=== PATIENT | male | born 1985 | race American Indian/Alaskan Native ===

== ENCOUNTER 2017-06-07 21:46 | Emergency (ER) | payer OTHER ==
--- NOTE | 2017-06-08 03:45 | Emergency Department Report ---
ED Asthma HPI - General Chief Complaint: Adult Asthma Stated Complaint: SOB/ ELLIOT Time Seen by Provider: 06/08/17 01:21 Source: patient Mode of arrival: Ambulatory Limitations: No Limitations - History of Present Illness Initial Comments: Patient reports that he has cough and, wheeze and shortness of breath since getting in and U guinea pig 2 weeks ago. He said he was cleaning up the area that the guinea pig stain and that triggered his asthma. He said that he ran out of his asthma and a little which is albuterol. He said he uses [facility] for his medication. Patient said he coughs and wheezes with his asthma attacks. No primary care visits. He does not have a doctor. Patient reports chest tightness and denies any heart disease. No medication taken for asthma since he does not have any inhaler. Asthma attack proceeded by nasal congestion and runny nose which patient said he has not been taking any medication for that. Denies any headache, drooling, sore throat. MD Complaint: "asthma attack", shortness of breath, wheezing Onset/Timin -: week(s) Asthma History: childhood onset, history of prior ED visit Severity: similar to prior Context: recent URI, ran out of meds, pet exposure Associated Symptoms: dry cough, chest pain (chest tightness). denies: productive cough, fever, hemoptysis, leg edema, syncope Treatments Prior to Arrival: inhaled bronchodilator - Related Data Current Asthma Therapy: none Previous Rx's Medication Instructions Recorded Last Taken Type Cetirizine HCl [ZyrTEC] 10 mg PO QAM 14 Days #14 capsule 06/08/17 Unknown Rx Fluticasone [Flonase] 1 spray NS QDAY 14 Days #1 bottle 06/08/17 Unknown Rx methylPREDNISolone [Medrol] 4 mg PO ONCE 6 Days #1 pack 06/08/17 Unknown Rx Allergies Allergy/AdvReac Type Severity Reaction Status Date / Time No Known Allergies Allergy Unverified 06/07/17 22:10 ED Review of Systems ROS: Stated complaint: SOB/ ELLIOT Other details as noted in HPI Comment: All other systems reviewed and negative Constitutional: no symptoms reported Eyes: denies: eye pain, eye discharge, vision change ENT: congestion. denies: ear pain, throat pain, dental pain, epistaxis Respiratory: cough, shortness of breath, SOB with exertion, SOB at rest, wheezing. denies: stridor Cardiovascular: chest pain (chest tightness). denies: palpitations, dyspnea on exertion, orthopnea, edema, syncope, paroxysmal nocturnal dyspnea Gastrointestinal: denies: abdominal pain, nausea, vomiting, diarrhea, constipation Skin: denies: rash Neurological: denies: headache, weakness, numbness, paresthesias, confusion, abnormal gait, vertigo ED Past Medical Hx - Past Medical History Previous Medical History?: Yes Hx Asthma: Yes - Surgical History Past Surgical History?: No - Family History Family history: no significant - Social History Smoking Status: Never Smoker Substance Use Type: Alcohol - Medications Home Medications: Home Medications Medication Instructions Recorded Confirmed Last Taken Type Cetirizine HCl [ZyrTEC] 10 mg PO QAM 14 Days #14 capsule 06/08/17 Unknown Rx Fluticasone [Flonase] 1 spray NS QDAY 14 Days #1 bottle 06/08/17 Unknown Rx methylPREDNISolone [Medrol] 4 mg PO ONCE 6 Days #1 pack 06/08/17 Unknown Rx ED Physical Exam - General Limitations: No Limitations General appearance: alert, in no apparent distress - Head Head exam: Present: atraumatic, normocephalic, normal inspection - Eye Eye exam: Present: normal appearance, PERRL, EOMI. Absent: periorbital swelling , periorbital tenderness Pupils: Present: normal accommodation - ENT ENT exam: Present: normal orophraynx, mucous membranes moist, normal external ear exam, other (no maxillary or frontal sinus tenderness.). Absent: normal exam, TM's normal bilaterally (bilateral TM congested without erythema.) - Neck Neck exam: Present: normal inspection, full ROM, other (no C-spine tenderness.) . Absent: tenderness, meningismus, lymphadenopathy, thyromegaly - Respiratory Respiratory exam: Present: wheezes, other (dry cough, continuous). Absent: normal lung sounds bilaterally, respiratory distress, rales, rhonchi, stridor, chest wall tenderness, accessory muscle use, decreased breath sounds, prolonged expiratory - Cardiovascular Cardiovascular Exam: Present: normal rhythm, tachycardia, normal heart sounds. Absent: systolic murmur, diastolic murmur - GI/Abdominal GI/Abdominal exam: Present: soft, normal bowel sounds. Absent: distended, tenderness, guarding, rebound, rigid - Extremities Exam Extremities exam: Present: normal inspection, full ROM, normal capillary refill , other (no clubbing, cyanosis or edema. +2 pulses in all extremities. No neurovascular compromise.). Absent: tenderness, pedal edema, joint swelling, calf tenderness - Back Exam Back exam: Present: normal inspection, full ROM. Absent: tenderness, CVA tenderness (R), CVA tenderness (L), muscle spasm, paraspinal tenderness, vertebral tenderness, rash noted - Neurological Exam Neurological exam: Present: alert, oriented X3, normal gait, reflexes normal. Absent: motor sensory deficit - Psychiatric Psychiatric exam: Present: normal affect, normal mood - Skin Skin exam: Present: warm, dry, intact, normal color. Absent: rash ED Course Vital Signs 06/07/17 06/08/17 22:10 07:00 Temperature 98.6 F Pulse Rate 101 H 85 Respiratory 18 17 Rate Blood Pressure 153/89 Blood Pressure 112/82 [Right] O2 Sat by Pulse 96 98 Oximetry EKG with sinus rhythm at 80 bpm. Per respiratory therapist, patient peak flow pretreatment 175 and post treatment 500. - Reevaluation(s) Reevaluation #1: 06/08/17 04:43 Patient started on albuterol 10 mg along with Atrovent 0.5 mg nebulizer, INT started and patient started on Solumedrol 125 mg IV and magnesium sulfate 2 g IV. Patient tolerated well and magnesium infused and at present. Patient currently getting nebulizer treatment per respiratory. Reevaluation #2: 06/08/17 05:14 She is stable. He still has nebulizer treatment going. He also told me that he just got a guinea pig for his 2 weeks ago and that is when his symptoms flare up. He reports that he is feeling a lot better. Denies use sulfate completed and patient tolerated without any adverse reaction Reevaluation #3: 06/08/17 06:39 She completed nebulizer treatment, magnesium sulfate and he feels much better. No problems with respiration and he said he did not have any chest pain or shortness of breath anymore. Patient says that he will need to get rid of the guinea pig because he thinks this was causing and triggering his asthma attack. Lung sounds clear after medication given. Peak flow pre treatment at 175 and post treatment at 500 per respiratory therapist. O2 sat is better and heart rate is stable. ED Medical Decision Making - EKG Data -: EKG Interpreted by Me (attending physician) EKG shows normal: sinus rhythm (80 bpm) Rate: normal - EKG Data Interpretation: no acute changes, normal EKG - Medical Decision Making D course: Here complaining of asthma attack preceded by upper respiratory tract infection after getting getting opaque and exposure to allergen from guinea pig. He said he has asthma and he has coughing and wheezing with his asthma attack and this is been ongoing and he run out of his inhaler. Physical findings for coughing and wheezing throughout lung cummins and pulse ox 96%. Patient was given albuterol 10 mg and Atrovent 0.5 mg nebulizer, magnesium sulfate 2 g IV and Solu-Medrol 125 mg IV in the emergency room. Status post medication patient lung sounds is clear, cough and has decreased and he is no longer having any shortness of breath or chest tightness. Peak flow before treatment 175 and after treatment is at 500 per respiratory therapist. Patient reports that he is feeling better he is walking around without any difficulties. Discussed patient that he'll need to follow up at [facility] to call today to schedule follow-up appointment for asthma and for management of chronic asthma. Patient discharged home with prescription for Medrol Dosepak, albuterol, Zyrtec and Flonase. Critical care attestation.: If time is entered above; I have spent that time in minutes in the direct care of this critically ill patient, excluding procedure time. ED Disposition Clinical Impression: URI with cough and congestion Asthma exacerbation Qualifiers: Asthma severity: moderate Asthma persistence: unspecified Qualified Code(s): J45.901 - Unspecified asthma with (acute) exacerbation Disposition: - TO HOME OR SELFCARE Is pt being admited?: No Does the pt Need Aspirin: No Condition: Stable Instructions: Asthma (ED), Upper Respiratory Infection (ED), Acute Cough (ED) Additional Instructions: Please take a medication as prescribed. Coughs [facility] this morning and schedule an appointment for visits for management of chronic asthma. U will probably need to pay sliding scale fee based on your income. Take Flonase and Zyrtec to manage upper respiratory tract infection which include nasal congestion and nasal drainage. Take albuterol as prescribed and Medrol Dosepak as prescribed. If symptoms return and you cannot control with steroid and albuterol ,please return to the emergency room PAZ. Please avoid offending agent this causes and your asthma trigger. if you find that you are using your rescue inhaler more than twice weekly. you will need to speak with primary care physician for U will establish at [facility] for evaluation of long-term inhaler for asthma. Prescriptions: Cetirizine HCl [ZyrTEC] 10 mg PO QAM 14 Days #14 capsule Fluticasone [Flonase] 1 spray NS QDAY 14 Days #1 bottle methylPREDNISolone [Medrol] 4 mg PO ONCE 6 Days #1 pack Referrals: [facility] [Outside] - 06/09/17 Forms: Work/School Release Form(ED)
[2017-06-08] MEDS ORDERED: PROVENTIL IH ONE (03:46)
[2017-06-08] MEDS ORDERED: ATROVENT IH ONE (03:46)
[2017-06-08] MEDS ORDERED: MAGNESIUM SULFATE 2GM/50ML 2 GM/50 ML BAG IV ONE (03:46)
[2017-06-08 07:02] VITALS: BP 112/82
== END 2017-06-08 07:00 | disposition home or self-care (01) ==
LOC: ED 21:46
DX: R06.02 Shortness of breath (principal); Z53.21 Procedure and treatment not carried out due to patient leaving prior to being seen by health care provider
CPT/HCPCS: 93005; 93010; J2930; J3475; 96365; 96375; 99283

== ENCOUNTER 2021-07-14 17:38 | Emergency (ER) | payer SELFPAY ==
[2021-07-15] MEDS ORDERED: KETOROLAC 30 MG/1 ML INJ IM ONE (02:30)
[2021-07-15] MEDS ORDERED: dexAMETHasone 20 MG/5 ML VIAL IM ONE (02:30)
[2021-07-15] MEDS ORDERED: HYDROcodone/ACETAMINOPHEN 5-325 MG TAB PO ONE (03:49)
[2021-07-15] MEDS ORDERED: CYCLOBENZAPRINE 10 MG TAB PO ONE (03:49)
--- NOTE | 2021-07-15 04:40 | Emergency Department Report ---
ED Back Pain/Injury HPI - General Chief Complaint: Back Pain/Injury Stated Complaint: BACK & LEG PAIN Time Seen by Provider: 07/15/21 02:28 Source: patient Limitations: No Limitations - History of Present Illness Initial Comments: Patient 36-year-old male who states he was running in gym on yesterday and twisted his back. Patient now complains of 6/10 back pain rated as sharp low back. Preventing prolonged standing and more mobility. Patient denies numbness or paralysis. There has been no loss or decrease in bowel or bladder function. Patient arrived to ED tonight via POV and family member. MD Complaint: back injury - Related Data Previous Rx's Medication Instructions Recorded Last Taken Type Cetirizine HCl [ZyrTEC] 10 mg PO QAM 14 Days #14 capsule 06/08/17 Unknown Rx Fluticasone [Flonase] 1 spray NS QDAY 14 Days #1 bottle 06/08/17 Unknown Rx methylPREDNISolone [Medrol] 4 mg PO ONCE 6 Days #1 pack 06/08/17 Unknown Rx Cyclobenzaprine [Flexeril] 10 mg PO TID #15 07/15/21 Unknown Rx Naproxen [Naprosyn] 500 mg PO BID PRN 30 Days #30 tab 07/15/21 Unknown Rx Allergies Allergy/AdvReac Type Severity Reaction Status Date / Time No Known Allergies Allergy Unverified 06/07/17 22:10 ED Review of Systems ROS: Stated complaint: BACK & LEG PAIN Other details as noted in HPI Constitutional: denies: chills, fever, malaise Eyes: denies: eye pain, eye discharge, vision change ENT: denies: ear pain, throat pain Respiratory: denies: cough, shortness of breath, wheezing Cardiovascular: denies: chest pain, palpitations Endocrine: no symptoms reported Gastrointestinal: denies: abdominal pain, nausea, vomiting, diarrhea, hematemesis Genitourinary: denies: urgency, dysuria Musculoskeletal: denies: back pain, joint swelling, arthralgia Skin: denies: rash, lesions, change in color, pruritus Neurological: denies: headache, weakness, numbness, paresthesias, confusion, vertigo Psychiatric: denies: anxiety, depression Hematological/Lymphatic: denies: easy bleeding, easy bruising ED Past Medical Hx - Past Medical History Previous Medical History?: Yes Hx Asthma: Yes - Social History Smoking Status: Never Smoker Substance Use Type: Alcohol - Medications Home Medications: Home Medications Medication Instructions Recorded Confirmed Last Taken Type Cetirizine HCl [ZyrTEC] 10 mg PO QAM 14 Days #14 capsule 06/08/17 Unknown Rx Fluticasone [Flonase] 1 spray NS QDAY 14 Days #1 bottle 06/08/17 Unknown Rx methylPREDNISolone [Medrol] 4 mg PO ONCE 6 Days #1 pack 06/08/17 Unknown Rx Cyclobenzaprine [Flexeril] 10 mg PO TID #15 07/15/21 Unknown Rx Naproxen [Naprosyn] 500 mg PO BID PRN 30 Days #30 tab 07/15/21 Unknown Rx ED Physical Exam - General Limitations: No Limitations General appearance: alert, in no apparent distress - Head Head exam: Present: normocephalic, normal inspection - Eye Eye exam: Present: normal appearance, PERRL, EOMI, scleral icterus. Absent: conjunctival injection, nystagmus Pupils: Present: normal accommodation - ENT ENT exam: Present: normal orophraynx, mucous membranes dry, mucous membranes moist, TM's normal bilaterally, normal external ear exam - Neck Neck exam: Present: normal inspection, tenderness, full ROM. Absent: lymphadenopathy, thyromegaly - Expanded Neck Exam Expanded Neck exam: Present: tenderness, carotid bruit. Absent: midline deformity, anterior neck swelling, tracheal deviation - Respiratory Respiratory exam: Present: normal lung sounds bilaterally. Absent: respiratory distress - Cardiovascular Cardiovascular Exam: Present: regular rate, normal rhythm. Absent: systolic murmur, diastolic murmur, rubs, gallop - GI/Abdominal GI/Abdominal exam: Present: soft, normal bowel sounds. Absent: distended, tenderness, guarding, rebound, rigid, bruit, hernia - Rectal Rectal exam: Present: deferred - Extremities Exam Extremities exam: Present: normal inspection, full ROM, normal capillary refill. Absent: tenderness, joint swelling - Back Exam Back exam: Present: normal inspection, full ROM, muscle spasm. Absent: tenderness, CVA tenderness (R), CVA tenderness (L), paraspinal tenderness, vertebral tenderness - Neurological Exam Neurological exam: Present: alert, oriented X3, normal gait, reflexes normal. Absent: motor sensory deficit - Expanded Neurological Exam Expanded Patient oriented to: Present: person, place, time Speech: Present: fluid speech Cranial nerves: EOM's Intact: Normal, Gag Reflex: Normal, Tongue Deviation: Normal, Nystagmus: Normal, Facial Sensation: Normal Motor strength exam: RUE: 5, LUE: 5, RLE: 5, LLE: 5 DTR: ankle (R): 1+, ankle (L): 1+ Best Eye Response (Perkins): (4) open spontaneously Best Motor Response (Felecia): (6) obeys commands Best Verbal Response (Felecia): (5) oriented Perkins Total: 15 - Psychiatric Psychiatric exam: Present: normal affect, normal mood - Skin Skin exam: Present: warm, dry, intact, normal color. Absent: rash ED Course Vital Signs 07/14/21 07/15/21 07/15/21 20:27 02:40 04:13 Temperature 99.3 F Pulse Rate 73 Respiratory 20 14 14 Rate Blood Pressure 116/76 [Right] O2 Sat by Pulse 99 Oximetry ED Medical Decision Making - Medical Decision Making There is a low back strain plan NSAIDs muscle relaxants analgesic balm. Moist heat therapy. Follow-up with your doctor in 2 to 3 days. Return to emergency department if symptoms causes Critical care attestation.: If time is entered above; I have spent that time in minutes in the direct care of this critically ill patient, excluding procedure time. ED Disposition Clinical Impression: Repetitive strain injury of lower back Qualifiers: Encounter type: initial encounter Qualified Code(s): S39.012A - Strain of muscle, fascia and tendon of lower back, initial encounter; X50.3XXA - Overe xertion from repetitive movements, initial encounter Disposition: HOME / SELF CARE / HOMELESS Is pt being admited?: No Condition: Stable Instructions: Muscle Strain, [id number], Lumbosacral Strain, Back Injury Prevention Additional Instructions: Take medications as prescribed, use moist heat therapy as directed. Prescriptions: Cyclobenzaprine [Flexeril] 10 mg PO TID #15 Naproxen [Naprosyn] 500 mg PO BID PRN 30 Days #30 tab PRN Reason: Pain Referrals: PRIMARY CARE, [Primary Care Provider] - 3-5 Days Forms: Work/School Release Form(ED) Time of Disposition: 04:46
[2021-07-15 05:05] VITALS: BP 133/81
== END 2021-07-15 05:07 | disposition home or self-care (01) ==
LOC: ED 17:38
DX: S39.012A Strain of muscle, fascia and tendon of lower back, initial encounter (principal); J45.909 Unspecified asthma, uncomplicated; X58.XXXA Exposure to other specified factors, initial encounter; Y93.89 Activity, other specified; Y92.89 Other specified places as the place of occurrence of the external cause; Y99.8 Other external cause status
CPT/HCPCS: 96372; 99282; J1100; J1885